=== PATIENT | female | born 1990 | race Caucasian/White ===

== ENCOUNTER 2018-03-31 13:22 | Day surgery (SDC) | payer OTHER, SELFPAY ==
[2018-03-31 14:02] VITALS: BP 138/63; TEMP 99.1; BMI 53.3
--- NOTE | 2018-03-31 16:41 | PDOC.LDHP ---
Labor and Delivery H&P Chief complaint: contractions HPI: 28 y/o at 35w0d, patient of Dr. Petersen, presents with ctx since 0700. Denies VB, LOF, or decreased FM. ROS neg for HEENT, cv, pulm, gi, gu, neuro, psych, skin, musculoskeletal or constitutional symptoms other than mentioned above. OB History Details: 1 prior 36 week PPROM --> PTD () 1 prior term Past Medical History: Obesity Current medications: pre- vitamins, other (metformin) Previous surgical history: other (tonsillectomy) Allergies/Adverse Reactions: Allergies Allergy/AdvReac Type Severity Reaction Status Date / Time amoxicillin [From Augmentin] Allergy Severe Short of Verified 03/31/18 14:04 Breath cefadroxil [From Duricef] Allergy Severe Nausea Verified 03/31/18 14:04 clavulanic acid Allergy Severe Short of Verified 03/31/18 14:04 [From Augmentin] Breath sulfacetamide Allergy Severe Hives Verified 03/31/18 14:04 [From Sulfamide] - Physical Exam Vital signs reviewed and normal: yes General: NAD, resting Lungs: nonlabored breathing Abdomen: gravid Extremeties: no edema FHT: category 1 (145, mod variability, + accels, no decels (difficult to monitor due to body habitus)) [place] contractions every: 5 mins - Vaginal Exam cm dilated: 2 Effacement: 25% Station: -3 - Assessment 28 y/o at 35w0d with no e/o PTL. status reassuring with bedside BPP (performed by myself for difficulty monitoring) of 06/02. PAPITO 8cm. FBS 112. - Plan -: D/c home with precautions. Advised to keep all appointments. Continue daily activity counts.
== END 2018-03-31 16:41 | disposition home or self-care (01) ==
LOC: L&D/OP 13:22
PROVIDERS: ATTEND Obstetrics & Gynecology
DX: O47.03 False labor before 37 completed weeks of gestation, third trimester (principal); Z88.0 Allergy status to penicillin; Z88.2 Allergy status to sulfonamides; Z3A.35 35 weeks gestation of pregnancy
CPT/HCPCS: 36416; 76815; 99283

== ENCOUNTER 2018-04-16 14:04 | Inpatient (IN) | payer OTHER, MEDICAID ==
[~2018-04-16 14:04] MED LIST: Lidocaine 2% PF Inj 2 ML VIAL ONE
[2018-04-16 14:59] VITALS: BMI 52.7
[2018-04-16] MEDS ORDERED: Promethazine HCl 25 MG/ML VIAL IM PRN ×2 (15:11→18:45)
[2018-04-16] MEDS ORDERED: NS / Oxytocin 40 units/1000ml 1,000 ML IV PRN ×2 (15:11→15:12)
[2018-04-16] MEDS ORDERED: Ondansetron HCl/PF 4 MG/2 ML Vial IVP PRN ×2 (15:11→18:45)
[2018-04-16] MEDS ORDERED: Lidocaine 1% (PF) 30 ML VIAL SC PRN (15:11)
[2018-04-16] MEDS ORDERED: Diphenoxylate HCl/Atropine Tablet PO PRN ×2 (15:12)
[2018-04-16] MEDS ORDERED: HYDROcodone/Acetaminophen 5/325 mg Tablet PO PRN ×2 (15:12)
[2018-04-16] MEDS ORDERED: Carboprost 250 MCG/ML AMP IM PRN (15:12)
[2018-04-16] MEDS ORDERED: Ibuprofen 800 MG TAB PO PRN (15:12)
[2018-04-16] MEDS ORDERED: Misoprostol 200 MCG TAB PR PRN (15:12)
[2018-04-16] MEDS ORDERED: NS w/ Oxytocin 10 units 500 ML IV SCH ×2 (15:15)
[2018-04-16 15:28] LABS: Hemoglobin 10.4 g/dL (12.0-16.0); Mean Corpuscular HGB CONC 33.5 g/dL (32.0-36.0); Mean Corpuscular Hemoglobin 25.6 pg (27.0-31.0); Mean Corpuscular Volume 76.6 fL (78.0-98.0); Mean Platelet Volume 8.3 fL (7.4-10.4); Platelet Count 251 thou/uL (130-400); RBC Distribution Width 17.4 % (11.5-14.5); Red Blood Cell (RBC) Count 4.07 mill/uL (4.20-5.40); White Blood Cell (WBC) Count 8.2 thou/uL (4.8-10.8)
[2018-04-16 15:44] LABS: ALT (SGPT) 25 U/L (8-55); AST (SGOT) 21 U/L (5-34); Albumin 3.3 g/dL (3.5-5.0); Alkaline Phosphatase 162 U/L (40-150); Anion Gap 13 mmol/L (10-20); BUN (Urea Nitrogen) 8 mg/dL (7.0-18.7); Bilirubin, Total 0.5 mg/dL (0.2-1.2); Calc. Creatinine Clearance 296 mL/min (70-130); Calcium 9.2 mg/dL (7.8-10.44); Carbon Dioxide 23 mmol/L (22-29); Chloride 103 mmol/L (98-107); Estimated GFR-MDRD Greater than 90; Glucose 136 mg/dL (70-105); Potassium 4.4 mmol/L (3.5-5.1); Protein, Total 6.3 g/dL (6.0-8.3); Sodium 135 mmol/L (136-145)
[2018-04-16] MEDS: Lactated Ringer's 1,000 ML IV SCH ×3 (15:44→23:23)
[2018-04-16] MEDS ORDERED: Vancomycin HCl 1 GM in Premix Bag 1 BAG IVPB SCH (16:00)
[2018-04-16 16:03] LABS: HBSAg Index 0.17 S/CO (0-0.99); Hep B Surf Ag Non-Reactive S/CO (NonReactive); Syphilis Antibody Nonreactive (Nonreactive); Syphilis Antibody Index 0.06 S/CO (<1.00 Non-Reactive)
[2018-04-16] MEDS ORDERED: Bupivacaine 0.5% 20 ML, fentaNYL Citrate/PF 400 MCG in Sodium Chloride 0.9% 72 ML EPIDURAL SCH (17:15)
[2018-04-16] MEDS ORDERED: DISCONTINUE ALL PREVIOUS NARCOTICS FS SCH (17:15)
[2018-04-16] MEDS ORDERED: Naloxone HCl 0.4 mg/ml Vial IVP PRN ×2 (18:45)
[2018-04-16] MEDS ORDERED: fentaNYL Citrate/PF 400 MCG, Bupivacaine 0.5% 20 ML in Sodium Chloride 0.9% 72 ML EPIDURAL SCH (18:45)
[2018-04-16] MEDS ORDERED: Communication Order-Pharmacy FS SCH (18:45)
[2018-04-16] MEDS ORDERED: Lactated Ringer's 500 ML IV PRN (18:45)
[2018-04-16] MEDS ORDERED: diphenhydrAMINE 50 MG/ML VIAL IVP PRN (18:45)
[2018-04-16] MEDS ORDERED: Acetaminophen 325 MG TAB PO PRN (18:45)
[2018-04-16] MEDS ORDERED: Eucerin (Mineral Oil/Petrolatum,White) 30 gm Jar TOP PRN (18:45)
[2018-04-16] MEDS ORDERED: ePHEDrine/0.9% NaCl/PF SYRINGE 50 mg/10 ml SLOW IVP PRN (18:45)
[2018-04-17] MEDS ORDERED: Varicella virus, LIVE 0.5 ML VIAL SC ONE (02:51)
[2018-04-17] MEDS ORDERED: diphenhydrAMINE 25 MG CAP PO PRN (02:51)
[2018-04-17] MEDS ORDERED: Zolpidem Tartrate 5 MG TAB PO PRN (02:51)
[2018-04-17] MEDS ORDERED: Measles/Mumps/Rubella 10 MCG/0.5 ML VIAL SC ONE (02:51)
[2018-04-17] MEDS ORDERED: Milk Of Magnesia 30 ML UDCUP PO PRN (02:51)
[2018-04-17] MEDS ORDERED: HYDROcodone/Acetaminophen 5/325 mg Tablet PO PRN (02:51)
[2018-04-17] MEDS ORDERED: Adacel (T-DAP) 0.5 ML VIAL IM ONE (02:51)
[2018-04-17] MEDS ORDERED: Lanolin Ointment 7 GM TUBE TOP PRN (02:51)
[2018-04-17] MEDS ORDERED: Preparation H Ointment 28 GM TUBE PR PRN (02:51)
[2018-04-17] MEDS ORDERED: Bisacodyl 10 MG SUPP PR PRN (02:51)
[2018-04-17] MEDS ORDERED: NS / Oxytocin 40 units/1000ml 1,000 ML IV SCH (02:51)
[2018-04-17] MEDS ORDERED: Promethazine HCl 25 MG/ML VIAL IM PRN (02:51)
[2018-04-17] MEDS ORDERED: Ondansetron HCl/PF 4 MG/2 ML Vial IVP PRN (02:51)
[2018-04-17] MEDS: Ibuprofen 800 MG TAB PO SCH ×3 (03:52→21:40)
[2018-04-17 06:07] LABS: Hemoglobin 9.4 g/dL (12.0-16.0); Mean Corpuscular Hemoglobin 26.1 pg (27.0-31.0); Mean Corpuscular Volume 76.6 fL (78.0-98.0); Mean Platelet Volume 8.8 fL (7.4-10.4); Platelet Count 204 thou/uL (130-400); RBC Distribution Width 17.3 % (11.5-14.5); Red Blood Cell (RBC) Count 3.59 mill/uL (4.20-5.40); White Blood Cell (WBC) Count 12.6 thou/uL (4.8-10.8)
[2018-04-17] MEDS: Ferrous Sulfate 325 MG TAB PO SCH ×2 (12:23→18:48)
[2018-04-17] MEDS: metFORMIN 500 MG TAB PO SCH ×2 (12:23→18:48)
[2018-04-17] MEDS: Docusate Calcium (SURFAK) 240 MG CAP PO SCH ×2 (12:23→21:40)
[2018-04-17] MEDS: Prenatal Vitamin 1 TAB PO SCH (12:24)
[2018-04-18] MEDS: Ibuprofen 800 MG TAB PO SCH ×2 (05:54→17:33)
[2018-04-18] MEDS: Docusate Calcium (SURFAK) 240 MG CAP PO SCH (08:21)
[2018-04-18] MEDS: metFORMIN 500 MG TAB PO SCH ×2 (08:21→17:32)
[2018-04-18] MEDS: Ferrous Sulfate 325 MG TAB PO SCH ×2 (08:21→17:33)
[2018-04-18] MEDS: Prenatal Vitamin 1 TAB PO SCH (08:21)
[2018-04-18 08:57] VITALS: BP 131/63; TEMP 98.2
--- NOTE | 2018-04-19 14:46 | DN ---
DATE OF SERVICE: 04/17/2018 PREOPERATIVE DIAGNOSES: Intrauterine at 37 weeks and 3 days with gestational hypertension and gestational diabetes along with morbid obesity. POSTOPERATIVE DIAGNOSES: Intrauterine at 37 weeks and 3 days with gestational hypertension and gestational diabetes along with morbid obesity. PROCEDURE: Pitocin induction and spontaneous vaginal delivery over intact perineum. FINDINGS: Viable male weighing 3455 grams or 7 pounds 10 ounces, Apgars 9 and 9. Quantitativ e blood loss of 316 mL COMPLICATIONS: None. DETAILS OF THE PROCEDURE: The patient presented to [facility] where she was a dmitted to the Labor and Delivery service. The patient underwent a normal and uneventful labor with normal cervical dilatation until she was found to be completely dilated. She was then allowed to pus h and was able to bring the baby down and delivered the baby in a vertex presentation without difficu lties. Once the head delivered in occiput anterior position, the shoulders followed spontaneously al twan with the rest of the baby's body. Once out the baby's mouth and nose were bulb suctioned. The c ord was clamped and cut and baby was handed to waiting attendants. Cord blood was collected. Gentle Fundal massage was performed and the placenta delivered intact without problems. Hemostasis was ass ured. Quantitative blood loss was calculated. Inspection of the cervix, vaginal vault, and perineum did not reveal any lacerations needing suturing. Once again, hemostasis was within normal limits an d the patient was allowed to recover in the labor and delivery room. Baby went to nursery
== END 2018-04-18 18:15 | disposition home or self-care (01) | DRG 775 ==
LOC: L&D 14:04 → 3SE 04-17 03:42
PROVIDERS: ADMIT Obstetrics & Gynecology; ATTEND Obstetrics & Gynecology
PROC: 10E0XZZ Delivery of Products of Conception, External Approach (ICD-10-PCS; principal; 2018-04-16)
PROC: 3E033VJ Introduction of Other Hormone into Peripheral Vein, Percutaneous Approach (ICD-10-PCS; 2018-04-16)
PROC: 10907ZC Drainage of Amniotic Fluid, Therapeutic from Products of Conception, Via Natural or Artificial Opening (ICD-10-PCS; 2018-04-16)
DX: O24.425 Gestational diabetes mellitus in childbirth, controlled by oral hypoglycemic drugs (principal); Z37.0 Single live birth; Z3A.37 37 weeks gestation of pregnancy; O13.4 Gestational [pregnancy-induced] hypertension without significant proteinuria, complicating childbirth; Z79.899 Other long term (current) drug therapy; E66.01 Morbid (severe) obesity due to excess calories; O99.214 Obesity complicating childbirth; Z88.2 Allergy status to sulfonamides; Z88.8 Allergy status to other drugs, medicaments and biological substances; Z88.1 Allergy status to other antibiotic agents
CPT/HCPCS: 36415; 51702; 80053; 85027; 86780; 86850; 86900; 86901; 87340; J2001; J2405; J3010; J3370; J3490; J7050

== ENCOUNTER 2022-08-15 01:16 | Emergency (ER) | payer SELFPAY | END 2022-08-15 02:55 | disposition home or self-care (01) | LOC: ERS 01:16 | DX: M79.662 Pain in left lower leg (principal); M79.661 Pain in right lower leg; E11.9 Type 2 diabetes mellitus without complications; E03.9 Hypothyroidism, unspecified | CPT/HCPCS: 71045 ==